=== PATIENT | male | born 1960 | race Caucasian/White ===

== ENCOUNTER 2021-03-20 09:05 | Day surgery (SDC) | payer OTHER ==
[~2021-03-20 09:05] MED LIST: EPINEPHrine 1 MG/ML 30 ML MDV IRR SCH; Lactated Ringers 1,000 ML IV SCH; Lidocaine 1% 4 ML ONE; Lidocaine 1%/Sod Bicarbonate in NS 8.4% 1 ML Syringe IDERM PRN; Midazolam 1 MG/ML 2 ML SDV ONE; Propofol 200 MG/20 ML SDV ONE; Rocuronium 50 MG/5 ML Vial ONE; Sodium Chloride 0.9% 10 ML Syringe FLUSH PRN; fentaNYL 100 MCG/2 ML SDV ONE
[2021-03-20] MEDS ORDERED: ceFAZolin 1 GM Vial ONE (10:50)
[2021-03-20] MEDS ORDERED: EPINEPHrine 1 MG/ML SDV ONE (10:56)
[2021-03-20] MEDS ORDERED: Ropivacaine 0.5% 5 MG/ML 30 ML SDV ONE (10:56)
--- NOTE | 2021-03-20 10:59 | PCM.PREANE ---
Preanesthetic Assessment - Anesthesia/Transfusion/Family Hx Anesthesia History: Prior Anesthesia Without Reaction Family History of Anesthesia Reaction: No Transfusion History: No Prior Transfusion(s) Intubation History: Unknown - Review of Systems General: No Symptoms Pulmonary: No Symptoms Cardiovascular: No Symptoms Gastrointestinal: No Symptoms Neurological: No Symptoms Other: Reports: None - Physical Assessment NPO Status Date: 03/20/21 NPO Status Time: 22:00 Vital Signs: Last Vital Signs Temp 36.7 C 03/20/21 09:15 Pulse Resp 16 03/20/21 09:15 BP 127/82 03/20/21 09:15 Pulse Ox 95 03/20/21 09:15 Height: 1.78 m Weight: 86.6 kg ASA Class: 2 Mental Status: Alert & Oriented x3 Airway Class: Mallampati = 1 Dentition: Reports: Normal Dentition Thyro-Mental Finger Breadths: 3 Mouth Opening Finger Breadths: 3 ROM/Head Extension: Full Lungs: Clear to Auscultation, Normal Respiratory Effort Cardiovascular: Regular Rate, Regular Rhythm - Allergies Allergies/Adverse Reactions: Allergies Allergy/AdvReac Type Severity Reaction Status Date / Time amoxicillin [From Augmentin] Allergy Rash Verified 03/20/21 09:37 clavulanic acid Allergy Rash Verified 03/20/21 09:37 [From Augmentin] Penicillins Allergy Rash Verified 03/20/21 09:37 - Acknowledgements Anesthesia Type Planned: General Anesthesia, Regional Block Pt an Appropriate Candidate for the Planned Anesthesia: Yes Alternatives and Risks of Anesthesia Discussed w Pt/Guardian: Yes Pt/Guardian Understands and Agrees with Anesthesia Plan: Yes PreAnesthesia Questionnaire HEENT History: Reports: Impaired Vision Cardiovascular History: Reports: High Cholesterol, Hypertension Respiratory History: Reports: Asthma (pt denies asthma) Gastrointestinal History: Reports: None Genitourinary History: Reports: Other (See Below) Other Genitourinary History: renal cyst with surgery [employer] TECHNOLOGIST History: Reports: None Musculoskeletal History: Reports: Other (See Below) Other Musculoskeletal History: left rotator cuff tear, right knee arthroscopy Neurological History: Reports: None Psychiatric History: Reports: None Endocrine/Metabolic History: Reports: None Hematologic History: Reports: None Immunologic History: Reports: None Oncologic (Cancer) History: Reports: None Dermatologic History: Reports: None - Infectious Disease History Infectious Disease History: Reports: None - Past Surgical History Head Surgeries/Procedures: Reports: None HEENT Surgical History: Reports: Oral Surgery Cardiovascular Surgical History: Reports: None Respiratory Surgical History: Reports: None GI Surgical History: Reports: Colonoscopy Female Surgical History: Reports: None Male Surgical History: Reports: Other (See Below) (renal cyst) Endocrine Surgical History: Reports: None Neurological Surgical History: Reports: None Musculoskeletal Surgical History: Reports: None Dermatological Surgical History: Reports: None - SUBSTANCE USE Tobacco Use Status *Q: Former Tobacco User Days Per Week of Alcohol Use: 2 Number of Drinks Per Day: 2 Total Drinks Per Week: 4 Recreational Drug Use History: No - HOME MEDS Home Medications: Home Meds Cyclobenzaprine [Flexeril] 10 mg PO BID PRN #20 tab 03/19/21 [Rx] Hydrocodone/Acetaminophen [HYDROcodone-Acetaminophen 5-325 MG] 1 - 2 each PO Q4H PRN #30 tablet 03/19/21 [Rx] Losartan [Cozaar] 50 mg PO DAILY 03/19/21 [History] Pravastatin [Pravachol] 40 mg PO DAILY 03/19/21 [History] Triamcinolone Acetonide [Nasacort] 1 dose NASBOTH DAILY PRN 03/19/21 [History] amLODIPine [Norvasc] 5 mg PO BEDTIME 03/19/21 [History] - CURRENT (IN HOUSE) MEDS Current Meds: Current Medications Epinephrine HCl (Epinephrine 1 Mg/Ml 30 Ml Mdv) 3 mg IRR ONETIME LEIDY Stop: 03/20/21 14:00 Lactated Ringer's (Ringers, Lactated) 1,000 mls @ 125 mls/hr IV ASDIRECTED LEIDY Stop: 03/20/21 23:00 Last Admin: 03/20/21 09:25 Dose: 125 mls/hr Documented by: Lidocaine/Sodium Bicarbonate (Lidocaine 1%/Sod Bicarbonate In Ns 8.4% 1 Ml Syringe) 0.25 ml IDERM ONETIME PRN PRN Reason: Prior to IV Start Stop: 03/20/21 18:00 Sodium Chloride (Sodium Chloride 0.9% 10 Ml Syringe) 10 ml FLUSH ASDIRECTED PRN PRN Reason: Keep Vein Open Stop: 03/20/21 18:00 Discontinued Medications Cefazolin Sodium (Cefazolin 1 Gm Vial) Confirm Administered Dose 2 gm .ROUTE .STK-MED ONE Stop: 03/20/21 10:51 Fentanyl (Fentanyl 100 Mcg/2 Ml Sdv) Confirm Administered Dose 100 mcg .ROUTE .STK-MED ONE Stop: 03/20/21 09:00 Lidocaine HCl (Xylocaine-Mpf 1%) Confirm Administered Dose 4 mls @ as directed .ROUTE .STK-MED ONE Stop: 03/20/21 08:59 Midazolam HCl (Midazolam 1 Mg/Ml 2 Ml Sdv) Confirm Administered Dose 2 mg .ROUTE .STK-MED ONE Stop: 03/20/21 09:00 Propofol (Propofol 200 Mg/20 Ml Sdv) Confirm Administered Dose 200 mg .ROUTE .STK-MED ONE Stop: 03/20/21 08:59 Rocuronium Clio (Rocuronium 50 Mg/5 Ml Vial) Confirm Administered Dose 50 mg .ROUTE .STK-MED ONE Stop: 03/20/21 08:59
--- NOTE | 2021-03-20 11:36 | PCM.SN.2 ---
- Free Text/Narrative Note: Date: 03/20/2021 Time Out:1110 Start: 1110 Stop: 1118 Current Procedure: Left interscalene block under US guidance for postoperative pain control requested by Dr. Harrison. Patient chart reviewed, risk/benefits discussed with patient, consent obtained. Patient positioned supine, monitors/alarms on, oxygen placed via nasal cannula at 2 LPM. IV sedation administered: Versed ___2__mg IV, Fentanyl _100____mcg IV given in preop prior to block placement. Leftt shoulder prepped with two chloropreps. Sterile drapes placed with aseptic technique noted. Under US guidance, left subclavian artery visualized along with the left brachial plexus. Plexus followed up to C6 cricoid level, and area localized with 2mls of 1% lidocaine. 22gauge 2 inch stimiplex needle advanced under US with 0.8mV with stimulation of biceps noted. Good stimulation noted with decreased voltage and absent at 0.3mVs. 1ml of Normal Saline injected with loss of stimulation noted to confirm needle not placed intraneurally. Incremental dosing of 5mls with negative aspiration noted prior to each injection of 0.5% ropivacaine with 1:200,000 epinephrine. Total volume=30mls. Please refer to nurses noted for vital signs. Malick Nevarez CRNA Time Documentation
[2021-03-20] MEDS ORDERED: fentaNYL 100 MCG/2 ML SDV ONE ×2 (11:38→12:24)
[2021-03-20] MEDS ORDERED: Ondansetron 4 MG/2 ML SDV IVPUSH PRN (12:04)
[2021-03-20] MEDS ORDERED: fentaNYL 100 MCG/2 ML SDV IVPUSH PRN (12:04)
[2021-03-20] MEDS ORDERED: Ketorolac 30 MG/ML SDV ONE (12:24)
[2021-03-20] MEDS ORDERED: Ondansetron 4 MG/2 ML SDV ONE (12:24)
[2021-03-20] MEDS ORDERED: Cyclobenzaprine 10 MG Tab PO PRN (13:18)
[2021-03-20] MEDS ORDERED: Acetaminophen/HYDROcodone 325-5 MG Tab PO PRN (13:18)
[2021-03-20] MEDS ORDERED: Lactated Ringers 1,000 ML ONE ×2 (13:20)
--- NOTE | 2021-03-20 13:31 | PCM.POSTAN ---
POST ANESTHESIA ASSESSMENT - MENTAL STATUS Mental Status: Alert, Oriented - VITAL SIGNS Vital Signs: Last Vital Signs Temp 36.7 C 03/20/21 09:15 Pulse Resp 16 03/20/21 09:15 BP 127/82 03/20/21 09:15 Pulse Ox 95 03/20/21 09:15 - RESPIRATORY Respiratory Status: Respiratory Rate WNL, Airway Patent, O2 Saturation Stable, Supplemental Oxygen - CARDIOVASCULAR CV Status: Pulse Rate WNL, Blood Pressure Stable - GASTROINTESTINAL GI Status: No Symptoms - PAIN Pain Score: 0 - POST OP HYDRATION Hydration Status: Adequate & Stable
--- NOTE | 2021-03-20 14:00 | PCM48HPAN ---
Post Anesthesia Note - EVALUATION WITHIN 48HRS OF ANESTHETIC Vital Signs in Normal Range: Yes Patient Participated in Evaluation: Yes Respiratory Function Stable: Yes Airway Patent: Yes Cardiovascular Function Stable: Yes Hydration Status Stable: Yes Pain Control Satisfactory: Yes Nausea and Vomiting Control Satisfactory: Yes Mental Status Recovered: Yes Vital Signs: Last Vital Signs Temp 36.8 C 03/20/21 13:23 Pulse Resp 9 L 03/20/21 13:45 BP 122/75 03/20/21 13:45 Pulse Ox 99 03/20/21 13:52
--- NOTE | 2021-04-03 07:16 | PCM.OPNOTE ---
- General Post-Op/Procedure Note Date of Surgery/Procedure: 03/20/21 Operative Procedure(s): left shoulder video arthroscopy with large rotator cuff repair, subacromial decomperssion, biceps tenotomy, and extensive debridement Pre Op Diagnosis: left shoulder rotator cuff with biceps tendinopathy and impingement Post-Op Diagnosis: Same Anesthesia Technique: General ET Tube, Regional Block Primary Surgeon: Tyshawn Harrison Anesthesia Provider: Annie Espinosa Production Illustrator: Tammy Linares EBDuarte in mLs: 5 Complications: None Condition: Good
--- NOTE | 2021-04-04 08:10 | OR ---
DATE OF OPERATION: 03/20/2021 SURGEON: Tyshawn Harrison MD OPERATION PERFORMED: Left shoulder video arthroscopy with large rotator cuff repair, subacromial decompression, biceps tenotomy, and extensive debridement. PREOPERATIVE DIAGNOSIS: Left shoulder rotator cuff tear with biceps tendinopathy and impingement. POSTOPERATIVE DIAGNOSIS: Left shoulder rotator cuff tear with biceps tendinopathy and impingement. ANESTHESIA: General endotracheal intubation with regional interscalene block. ANESTHESIA PROVIDER: Annie Espinosa CRNA. TORCH BRAZER: Tammy Linares PA-C. ESTIMATED BLOOD LOSS: 5 mL. COMPLICATIONS: None. CONDITION: Stable. DESCRIPTION OF PROCEDURE: The patient was identified in the preoperative holding area. Proper site was marked, identified by the surgeon. The patient was taken back to the operating theater. After adequate anesthesia, the patient was placed in the lazy right lateral decubitus position. Wedge was placed posteriorly. The patient was secured to the table. Left upper extremity was then sterilely prepped and draped in the usual sterile fashion. OR time-out was performed. Patient received 2 g IV Ancef. 12 pounds of traction was applied to the left upper extremity. Standard posterior incision was made. Scope trocar was introduced into the glenohumeral joint. With the use of a spinal needle, anterior portal was created with an outside-in technique. At this time, the patient was noted to have no significant chondromalacia. He was noted to have a large tear of the rotator cuff and supraspinatus as well as part of the infraspinatus. Biceps tendon showed significant fraying at its attachment. There was no otherwise SLAP tear noted. At this time, a biceps tenotomy was performed and extensive debridement of the synovitis as well was done at this time. Attention was turned to the subacromial space. Significant debridement was done of the subacromial space. The patient was noted to have significant fraying of the CA ligament. A subacromial decompression using a 4-0 full-radius dottie was undertaken as well as the patient was noted to have a large rotator cuff tear, and the dottie was used to make a good bony bleeding bed. [place] all suture anchors were placed medially. The 12 limbs of suture were then passed from anterior to posterior with good purchase in the remaining rotator cuff tendon, although the tendon was significantly frayed. Two more lateral anchors were then placed in crosswise fashion of the rotator cuff tear with good adequate episcopal of the footprint. At this time, excess saline was drained from the shoulder. 3-0 nylon suture was used for closure of the skin. The patient was placed in a sterile soft dressing and a pillow sling and sent to the PACU in stable condition. BHAVIN /[id number]
== END 2021-03-20 14:55 | disposition home or self-care (01) ==
LOC: JD.SDS 09:05
PROVIDERS: ATTEND Orthopaedic Surgery
DX: M75.102 Unspecified rotator cuff tear or rupture of left shoulder, not specified as traumatic (principal); M75.52 Bursitis of left shoulder; M25.812 Other specified joint disorders, left shoulder; M65.812 Other synovitis and tenosynovitis, left shoulder; I10 Essential (primary) hypertension; E78.00 Pure hypercholesterolemia, unspecified; Z88.8 Allergy status to other drugs, medicaments and biological substances; Z79.899 Other long term (current) drug therapy; Z98.890 Other specified postprocedural states; Z87.891 Personal history of nicotine dependence; Z88.0 Allergy status to penicillin; Z88.1 Allergy status to other antibiotic agents
CPT/HCPCS: 01630; 64415; 76942; C1713; J0171; J0690; J1885; J2250; J2405; J2704; J2795; J3010; J7120